=== PATIENT | male | born 1985 | race Caucasian/White ===

== ENCOUNTER 2019-05-03 17:24 | Emergency (ER) | payer MEDICAID ==
[~2019-05-03] VITALS: Ht 170.2 cm; Wt 79.5 kg
[2019-05-03 17:26] VITALS: BP 140/95
[2019-05-03] MEDS ORDERED: ALBU8HFA IH (17:36)
[2019-05-03] MEDS ORDERED: AZITHROMYCIN 250 MG TABLET PO ONE (18:00)
[2019-05-03] MEDS ORDERED: DiphenhydrAMINE HCL 25 MG CAPSULE PO ONE (18:00)
[2019-05-03] MEDS ORDERED: CefTRIAXone SODIUM 1 GM/VIAL IM ONE (18:00)
[2019-05-03] MEDS ORDERED: LIDOCAINE/PF 1% 2 ML VIAL IM ONE (18:00)
== END 2019-05-03 19:12 | disposition home or self-care (01) ==
LOC: EMS 17:25
DX: A64 Unspecified sexually transmitted disease (principal); R21 Rash and other nonspecific skin eruption; J45.909 Unspecified asthma, uncomplicated; F17.210 Nicotine dependence, cigarettes, uncomplicated; F12.90 Cannabis use, unspecified, uncomplicated; F19.90 Other psychoactive substance use, unspecified, uncomplicated
CPT/HCPCS: 96372; 99283; 99406; J0696; J3490